=== PATIENT | female | born 1990 | race Caucasian/White ===

== ENCOUNTER 2020-06-22 07:04 | Outpatient (REF) | payer OTHER, SELFPAY ==
[2020-06-22 07:48] LABS: COVID-19 Test Negative (Negative)
== END 2020-06-22 07:05 | disposition home or self-care (01) ==
LOC: HO.EMPCOV 07:04
PROVIDERS: Visit Provider Internal Medicine
DX: Z20.828 Contact with and (suspected) exposure to other viral communicable diseases (principal)
CPT/HCPCS: 87635; C9803

== ENCOUNTER 2020-08-06 07:14 | Outpatient (REF) | payer OTHER, SELFPAY ==
[2020-08-06 07:32] LABS: COVID-19 Test Negative (Negative); IDNOW Serial# 55D5AD1C
== END 2020-08-06 07:15 | disposition home or self-care (01) ==
LOC: HO.EMPCOV 07:14
PROVIDERS: Visit Provider Internal Medicine
DX: Z20.822 Contact with and (suspected) exposure to COVID-19 (principal)
CPT/HCPCS: 36415; 87635; C9803

== ENCOUNTER 2020-08-17 07:04 | Outpatient (REF) | payer OTHER, SELFPAY ==
[2020-08-17 07:23] LABS: COVID-19 Test Negative (Negative); IDNOW Serial# 55D5AD1C
== END 2020-08-17 07:05 | disposition home or self-care (01) ==
LOC: HO.EMPCOV 07:04
PROVIDERS: Visit Provider Internal Medicine
DX: Z20.822 Contact with and (suspected) exposure to COVID-19 (principal)
CPT/HCPCS: 36415; 87635; C9803

== ENCOUNTER 2020-09-05 07:13 | Outpatient (REF) | payer OTHER, SELFPAY ==
[2020-09-06 06:07] LABS: COVID-19 Test Positive (Negative)
== END 2020-09-05 07:14 | disposition home or self-care (01) ==
LOC: HO.EMPCOV 07:13
PROVIDERS: Visit Provider Internal Medicine
DX: Z20.822 Contact with and (suspected) exposure to COVID-19 (principal)
CPT/HCPCS: 36415; 87635; C9803

== ENCOUNTER 2020-10-05 07:46 | Outpatient (REF) | payer OTHER, SELFPAY ==
[2020-10-05 08:08] LABS: COVID-19 Test Negative (Negative)
== END 2020-10-05 07:47 | disposition home or self-care (01) ==
LOC: HO.EMPCOV 07:46
PROVIDERS: Visit Provider Internal Medicine
DX: Z20.822 Contact with and (suspected) exposure to COVID-19 (principal)
CPT/HCPCS: 36415; 87635; C9803

== ENCOUNTER → 2022-05-22 13:18 | Outpatient (RCR) | payer OTHER, SELFPAY ==
[2020-10-12 07:57] LABS: COVID-19 Test Negative (Negative); IDNOW Serial# 55D5AD1C
[2020-10-19 07:57] LABS: COVID-19 Test Negative (Negative); IDNOW Serial# 55D5AD1C
[2020-10-26 07:55] LABS: COVID-19 Test Negative (Negative); IDNOW Serial# 55D5AD1C
[2020-11-02 07:58] LABS: COVID-19 Test Negative (Negative); IDNOW Serial# 55D5AD1C
[2020-11-09 08:28] LABS: COVID-19 Test Negative (Negative)
[2020-11-16 08:09] LABS: COVID-19 Test Negative (Negative)
[2020-11-23 08:03] LABS: COVID-19 Test Negative (Negative)
[2020-11-30 07:50] LABS: COVID-19 Test Negative (Negative)
[2020-12-14 07:57] LABS: COVID-19 Test Negative (Negative)
[2020-12-21 07:59] LABS: COVID-19 Test Negative (Negative)
[2021-01-04 07:53] LABS: COVID-19 Test Negative (Negative)
== END | disposition home or self-care (01) ==
LOC: HO.EMPCOV 10-12 07:34
PROVIDERS: Visit Provider Internal Medicine
DX: Z20.828 Contact with and (suspected) exposure to other viral communicable diseases (principal)
CPT/HCPCS: 36415; 87635; C9803